=== PATIENT | female | born 1980 | race Caucasian/White ===

== ENCOUNTER → 2017-04-24 | Day surgery (SDC) | payer OTHER ==
[2017-04-20 07:51] VITALS: BP 142/86
[~2017-04-24] VITALS: Ht 167.6 cm; Wt 76.2 kg
[~2017-04-24] MED LIST: IBU800 MG PO; NORCO 5-325 TA1 EACH PO
[2017-04-24 07:04] VITALS: BP 159/90
[2017-04-24 08:31] VITALS: BP 144/88
[2017-04-24 08:46] VITALS: BP 139/82
[2017-04-24 09:04] VITALS: BP 159/82
[2017-04-24 09:19] VITALS: BP 145/81
[2017-04-24 09:28] VITALS: BP 144/84
== END | disposition home or self-care (01) ==
LOC: SDC 04-20 08:00
DX: Z30.2 Encounter for sterilization (principal); N80.3 Endometriosis of pelvic peritoneum; N73.6 Female pelvic peritoneal adhesions (postinfective)

== ENCOUNTER 2017-05-14 07:23 | Emergency (ER) | payer OTHER ==
[~2017-05-14] VITALS: Ht 165.1 cm; Wt 77.1 kg
[~2017-05-14 07:23] MED LIST changes: -NORCO 5-325 TA1 EACH PO
[2017-05-14] MEDS ORDERED: NORCO 5-325 TA1 EACH PO (08:22)
== END 2017-05-14 09:28 | disposition home or self-care (01) ==
LOC: ED 07:23
DX: S52.501A Unspecified fracture of the lower end of right radius, initial encounter for closed fracture (principal); W18.30XA Fall on same level, unspecified, initial encounter; Y93.89 Activity, other specified; Y92.9 Unspecified place or not applicable; Y99.9 Unspecified external cause status

== ENCOUNTER → 2017-06-05 | Outpatient (CLI) | payer OTHER ==
[~2017-06-05] MED LIST changes: +NORCO 5-325 TA1 EACH PO
== END | disposition home or self-care (01) ==
LOC: ORTHO 02:12
DX: S52.501D Unspecified fracture of the lower end of right radius, subsequent encounter for closed fracture with routine healing (principal); X58.XXXD Exposure to other specified factors, subsequent encounter

== ENCOUNTER → 2017-06-26 | Outpatient (CLI) | payer OTHER | END | disposition home or self-care (01) | LOC: ORTHO 01:37 | DX: S52.571D Other intraarticular fracture of lower end of right radius, subsequent encounter for closed fracture with routine healing (principal); X58.XXXD Exposure to other specified factors, subsequent encounter ==

== ENCOUNTER → 2017-07-31 | Outpatient (CLI) | payer OTHER | LOC: ORTHO 03:25 | DX: Z47.89 Encounter for other orthopedic aftercare (principal); S52.571D Other intraarticular fracture of lower end of right radius, subsequent encounter for closed fracture with routine healing; X58.XXXD Exposure to other specified factors, subsequent encounter ==